=== PATIENT | female | born 1950 | race Caucasian/White ===

== ENCOUNTER → 2023-04-22 09:47 | Outpatient (CLI) | payer MEDICARE, SELFPAY ==
--- NOTE | ~2023-04-22 | XR_ITS ---
EXAM: XR thoracolumbar DATE: 04/22/2023 10:09 HISTORY: T12 pathological compression fx FOLLOW UP . COMPARISON: None available. FINDINGS: Decreased mineralization. Severe scoliosis. Severe height loss at T12. Moderate height los s at L4. No lytic or blastic lesion. Pedicles intact. Senescent changes in the lungs. Multilevel dege nerative disc disease. Calcification over the right renal shadow. Atherosclerotic aortic calcificatio ns without evident aneurysm. IMPRESSION: Severe osteopenia. Severe thoracolumbar scoliosis. Severe T12 and moderate L4 compression fractures of uncertain age. No comparison studies available. Possible right nephrolithiasis. Reviewed, dictated and finalized at location K. IMPRESSION: Severe osteopenia. Severe thoracolumbar scoliosis. Severe T12 and moderate L4 compression fractures of uncertain age. No compariso n studies available. Possible right nephrolithiasis.
== END ==
DX: M84.48XA Pathological fracture, other site, initial encounter for fracture (principal); M85.88 Other specified disorders of bone density and structure, other site
CPT/HCPCS: 72080

== ENCOUNTER → 2023-05-20 09:53 | Outpatient (CLI) | payer MEDICARE, SELFPAY ==
--- NOTE | ~2023-05-20 | XR_ITS ---
EXAM: XR thoracolumbar DATE: 05/20/2023 10:12 HISTORY: T12 PATHOLOGICAL COMPRESSION FRACTURE . COMPARISON: 04/22/2023. FINDINGS: Decreased mineralization. Thoracolumbar scoliosis. Severe height loss at T12, moderate hei ght loss at L4, stable. Vertebral bodies are aligned. Multilevel degenerative disc disease and facet arthropathy. Calcifications of the right renal shadow. Atherosclerotic aortic calcifications without evident aneurysm. IMPRESSION: Stable T12 and L4 compression fractures. Reviewed, dictated and finalized at location K.
== END ==
DX: M84.48XA Pathological fracture, other site, initial encounter for fracture (principal)
CPT/HCPCS: 72080